=== PATIENT | female | born 1985 | race Caucasian/White ===

== ENCOUNTER → 2018-03-26 | Day surgery (SDC) | payer BC ==
[~2018-03-26] MED LIST: LIDOCAINE 1% PF 2 ML VIAL. ID; LIDOCAINE 2% PF Vial for OR 5 ML VIAL.; MIDAZOLAM HCL/PF 2 MG/2 ML VIAL. IV; PROPOFOL 20 ML IV; fentaNYL PF VIAL 100 MCG/2 ML VIAL IV
[2018-03-26] MEDS: IV RINGERS,LACTATED 1000ML 1,000 ML IV (12:41)
[2018-03-26 14:11] LABS: NEG OBC UR NEG; POS OBC UR POS; U PREG PATIENT NEGATIVE (NEG)
== END | disposition home or self-care (01) ==
LOC: SURG 12:08
DX: K29.50 Unspecified chronic gastritis without bleeding (principal); I10 Essential (primary) hypertension; Z88.0 Allergy status to penicillin; Z88.8 Allergy status to other drugs, medicaments and biological substances; Z91.041 Radiographic dye allergy status; Z83.71 Family history of colonic polyps; Z86.010 Personal history of colon polyps; Z83.3 Family history of diabetes mellitus; Z72.89 Other problems related to lifestyle; Z79.899 Other long term (current) drug therapy; Z98.890 Other specified postprocedural states; E66.9 Obesity, unspecified
CPT/HCPCS: 43235; 81025; J2001; J2704